=== PATIENT | male | born 1960 | race Caucasian/White ===

== ENCOUNTER → 2017-12-13 | Day surgery (SDC) | payer OTHER ==
[~2017-12-13] VITALS: Ht 180.3 cm; Wt 75.3 kg
[~2017-12-13] MED LIST: ROXICODONE5 M1 PO
--- NOTE | 2017-12-13 15:29 | Operative Report ---
Operative/Inv Procedure Report Surgery Date: 12/13/17 Name of Procedure: Robotic repair of bilateral inguinal hernias, left being recurrent with 3D max medium meshes TAP Pre-Operative Diagnosis: Bilateral inguinal hernias, left recurrent Post-Operative Diagnosis: Same, direct Estimated Blood Loss: none Surgeon/Sustainable Landscape Architect: Heather WARREN,Gal Durbin PA-C Anesthesia: general endotracheal tube IV Fluids: 800 cc crystalloid Implants: 3D max medium mesh right and left Drains: None Specimens: None Complications: None Condition: Excellent to PACU Operative Indication: Gal is a 57-year-old gentleman who had a prior open non-mesh left inguinal hernia repair over 20 years ago and has presented now with a new right inguinal bulge that occurred after lifting something heavy on his job site. It is a reducible right inguinal hernia that was very medial suspicious for a direct hernia. He was also found to have a left inguinal hernia recurrence. He presents to have robotic repair of both. Operative/Procedure Note Note: The patient was taken to the operating room placed on the operating table in supine position. Following an awake timeout he underwent uneventful induction of general endotracheal anesthesia had his arms tucked by his side, venodyne boots in place, and received IV Kefzol prior to skin incision. He had been shaved in the preop holding area with a clipper and the abdomen was now prepped widely with DuraPrep and draped in usual sterile fashion including Iob[place]. Local anesthetic was infiltrated in the supraumbilical area where a curvilinear incision was made and carried down to the fascia. Here a small vertical incision was made to expose the preperitoneal fat which was then divided with the cautery to expose the peritoneum. This was then opened carefully to gain entry into the peritoneal cavity. A finger sweep revealed there were no adhesions and a 12 mm Dominguez air seal port placed. Pneumoperitoneum was achieved and the 8 mm 30 da Angel XI robot scope was placed. One could see right away that there was a large defect in the right groin which was medial to the highly visible epigastric vessels consistent with a direct hernia. There was nothing within it. There were no adhesions over the entire pelvis. The left side had a less obvious direct hernia as well. Both internal rings were closed. Now 2 8 mm working ports were placed laterally just slightly cephalad to the level of the umbilicus after infiltrating local anesthetic under direct vision. The [employer] Angel XI robot was then docked and the camera placed in arm 3 while arm to head fenestrated bipolar in arm for had monopolar paulo. Arm 1 was sterile [place]. Patient was placed in Trendelenburg 15 prior to docking the robot. Beginning on the right side I created a peritoneal flap 5 cm cephalad to the location of the internal ring carried this flap medially across the umbilical ligament carefully crossing over the epigastric vessels without injuring them. The flap was then created inferiorly until I reached the margin of the direct defect. Now with traction on the sac and some preperitoneal fat behind I was able to reduce the hernia completely off of the transversalis fascia and then completed the dissection by creating a pocket medially behind the symphysis disposing the ramus and then rolling the just dissected large preperitoneal fat ball that had come out of the direct hernia off of the ramus as well to accommodate the edge of the mesh. Over the cord I dissected the peritoneum which was thin off of the cord structures to be on where the vas deviated medially. There was no evidence of lipoma or indirect hernia. I now measure the space and it would accommodate a medium mesh so a 3D max medium right mesh was selected and placed into the space for overlap the symphysis nicely and the tail sat in the lateral space that would been created. Completely cover the entire myopectineal orifice overlapping the ramus and Aj's ligament and I secured at 3 points medially to the back of the rectus muscle, onto Aj's ligament, and finally lateral to the epigastric vessels superiorly. This was done with 2-0 Tycron suture. The mesh sat nicely and I closed the flap that I had created with a running 2-0V lock absorbable suture. Attention was now turned to the opposite side. A mirror dissection was carried out. The findings were identical other than that the direct defect was smaller and there was less preperitoneal fat. There was no evidence of lipoma or indirect hernia. The internal ring was closed. On this side the peritoneum came off the area of the cord more easily. Identical 3D max medium mesh now left-sided was placed and secured in the identical locations with excellent coverage and fixation. Flap was closed with a 20V lock absorbable suture as well. With all the needle and instrument counts correct we undocked the robot and then remove the 2 8 mm ports under direct vision. The pneumo was released completely as we remove the Dominguez port and I closed the fascia at the umbilicus with 2 [id number]-fo-xodmo sutures of 0 [place]. Interrupted 3-0 Vicryl sutures were used in the subcu followed by 4-0 Monocryl running subcuticular skin closures. Steri-Strips 4 x 4 and OpSite were placed. César tolerated the procedure well was taken to the recovery room in satisfactory condition extubated all sponge needle and she recounts firmness correct times to completion of the case. He had no subcutaneous emphysema and no significant pneumo scrotum although he did have a bit of air in his direct hernia so there was some puffiness at the area of the groin. This resolved before leaving the room with some manual pressure. Findings: Bilateral direct hernias with preperitoneal fat right greater than left Discharge Disposition: PACU Additional Comments: None
== END ==
LOC: STS 02:00
DX: K40.91 Unilateral inguinal hernia, without obstruction or gangrene, recurrent (principal); K40.90 Unilateral inguinal hernia, without obstruction or gangrene, not specified as recurrent
CPT/HCPCS: 49651; 49650; S2900; C1781; J0131; J0690; J2250; J3490